=== PATIENT | female | born 1965 | race Caucasian/White ===

== ENCOUNTER 2021-02-19 23:05 | Emergency (ER) | payer BC ==
[~2021-02-19] VITALS: Ht 162.6 cm; Wt 90.7 kg
[~2021-02-19 23:05] MED LIST: ALPR1TAB2 PO; ASPI-667 PO; ATOR40TA PO; CIPR500T86 PO; DEXL30CA2 PO; HYDR12.58 PO; LORA0.5T PO; METO25TA4 PO; METR500T PO; PANT40TA3 PO; TRAM50TA PO; VARE1TAB20 PO; VENL37.5 PO; ZOLP10TA PO; ZOLP5TAB PO
[2021-02-19 23:15] VITALS: BP 159/103
[2021-02-19] MEDS ORDERED: TORADOL IM STA (23:17)
[2021-02-19] MEDS ORDERED: TORADOL ONE ×2 (23:23→23:24)
--- NOTE | 2021-02-19 23:26 | ER.PDOC ---
General Chief Complaint: Trauma Stated Complaint: FALL,R SIDE INJURY Time seen by MD: 23:24 Source: patient Exam Limitations: no limitations History of Present Illness Initial Comments Right ribs, hip, knee and ankle pain status post fall. Patient fell off a 5 feet ladder. She did not hit her head and no loss of consciousness. It happened prior to arrival. Occurred: just prior to arrival Where: home Severity: moderate Injuries/Pain Location: chest, lower extremity Context: Lost Balance Loss of Consciousness: No Loss of Consciousness Associated Symptoms: denies symptoms Allergies: Coded Allergies: erythromycin base (Verified Allergy, Mild, 10/18/14) meperidine (Verified Allergy, Mild, 10/18/14) morphine (Verified Allergy, Mild, 10/18/14) Iodine and Iodide Containing Produc (Verified Allergy, Unknown, 10/18/14) MEDS Active Scripts Pantoprazole Sodium (PROTONIX) 40 Mg Tablet.dr, 40 MG PO DAILY24, #30 TAB 1 Refill Prov:BETI BOYD MD 03/24/20 Reported Medications Alprazolam (XANAX) 1 Mg Tablet, 1 TAB PO QID PRN for ANXIETY, #60 TAB 03/23/20 Zolpidem Tartrate (AMBIEN) 5 Mg Tablet, 1 TAB PO HS, #30 TAB 2 Refills 03/23/16 Atorvastatin 40MG (LIPITOR 40MG) 40 Mg Tablet, 1 TAB PO HS, #90 TAB 1 Refill 10/18/14 Aspirin (ASPIRIN) 81 Mg Tab.chew, 1 TAB PO DAILY, #30 TAB 3 Refills 10/18/14 Past Medical History Medical History: high cholesterol, hypertension Surgical History: cholecystectomy, knee Family History Significant Family History: no pertinent family hx Social History Alcohol Use: none Drug Use: none Review of Systems Constitutional: no symptoms reported Respiratory: no symptoms reported Cardiovascular: see HPI Gastrointestinal: no symptoms reported Genitourinary: no symptoms reported Musculoskeletal: see HPI All Other Systems: Reviewed and Negative Physical Exam General Appearance: No Apparent Distress, WD/WN Head: No Evidence of Injury Ears, Nose, Mouth, Throat: Hearing Grossly Normal, No Evidence of ENT Injury, No Dental Injury Neck: Non-Tender, Normal Alignment, Nexus criteria neg, Normal Inspection Cardiovascular/Respiratory: Regular Rate, Rhythm, No M/R/G, Normal Peripheral Pulses, No JVD, Rib Tenderness (right) Back: Normal Inspection, No CVA Tenderness, No Vertebral Tenderness Extremities: Pain With Movement (right hip), Tenderness (right knee and ankle) Neurologic/Psychiatric: can slider II-XII NML as Tested, No Motor/Sensory Deficits, Alert, Normal Mood/Affect, Oriented x 3 Skin: Normal Color, Warm/Dry [place] Coma Score Best Eye Response: (4) Open Spontaneously Best Verbal Response: (5) Oriented Best Motor Response: (6) Obeys Commands Results/Orders Results/Orders Orders - BREEZY COURTNEY MD Xr Ribs Rt W/Cxr (02/19/21 23:17) Xr Hip Rt 2v W/Pelvis (02/19/21 23:17) Xr Knee Rt 2v (02/19/21 23:17) Xr Ankle 3v Rt (02/19/21 23:17) Ketorolac Tromethamine (Toradol) (02/19/21 23:17) Ketorolac Tromethamine (Toradol) (02/19/21 23:23) Ketorolac Tromethamine (Toradol) (02/19/21 23:24) Xr Hand Rt (02/19/21 23:59) Vital Signs Date Time Temp Pulse Resp B/P (MAP) Pulse Ox O2 Delivery O2 Flow Rate FiO2 02/19/21 23:15 98.0 90 16 02/19/21 23:15 98.0 90 16 93 02/19/21 23:15 98.0 90 16 159/103 (121) 93 Room Air Administered Medications Medications (Trade) Dose Ordered Sig/Praneeth Route PRN Reason Start Time Stop Time Status Last Admin Dose Admin Ketorolac Tromethamine (Toradol) 60 mg STAT STAT IM 02/19/21 23:17 02/19/21 23:20 DC 02/19/21 23:31 60 MG Progress Progress X-rays of right ribs, hand, hip, knee and ankle are all negative. ER DEPART Departure Time of Disposition: 00:37 Disposition: 01 HOME, SELF-CARE Impression: Primary Impression: Multiple contusions Additional Impression: Fall Condition: Stable Referrals: BETI BOYD MD (PCP) PRIMARY CARE PROVIDER Additional Instructions: Tramadol Ibuprofen F/U with your PCP next week Duration or Time Spent with Pa: 45 min Problem Qualifiers Additional Impression: Fall Encounter type: initial encounter Qualified Codes: W19.XXXA - Unspecified fall, initial encounter ROZ,BREEZY Sánchez MD Feb 19, 2021 23:26
--- NOTE | 2021-02-19 23:30 | NUR ---
ARRIVAL PT ARRIVED POV, ASSISTED OUT OF POV INTO WC ESCORTED TO ER 4 S/P FALLING FOOT OFF LADDER LANDING ON RIGHT SIDE WHILE PULLING SHINGLES AT 8 PM. PT REPORTS RIGHT RIB PAIN, RIGHT HIP, LEG AND ANKLE PAIN. NO BRUISING, NO REDNESS, NO EDEMA NOTED TO AREAS OF PAIN. PT ACCOMPANIED BY . PT DENIES LOC, PT ABLE TO BEAR WEIGHT ON RIGH LEG AND MOVE ALL DIGITS ON RIGHT HAND. PT PLACED ON MONITOR, VITALS WNL. ERP AT BEDSIDE.
--- NOTE | 2021-02-20 00:10 | NUR ---
RAD PENDING RADIOLOGY REPORTS. PT LYING ON LEFT SIDE, AT BEDSIDE. PT REPORTS RELIEF FROM PAIN MEDICATION. WARM BLANKET GIVEN FOR COMFORT.
--- NOTE | 2021-02-20 00:27 | DIREP ---
PROCEDURE:XRAY RIBS W/PA CHEST 3VWS-RT COMPARISON:None. INDICATIONS:pain S/P fall FINDINGS: Chest:No active pulmonary disease. No pneumothorax. RIBS:No fracture. OTHER:Surgical clips in right upper quadrant abdomen compatible cholecystectomy all. CONCLUSION:No active pulmonary disease. No pneumothorax. No evidence of acute displaced rib fracture. Dictated by: Hayden Salomon MD on 02/20/2021 at 00:24 AM
--- NOTE | 2021-02-20 00:28 | DIREP ---
PROCEDURE:XRAY HIP MIN 2VW-RT COMPARISON:None. INDICATIONS:pain FINDINGS: BONES:No evidence of acute fracture. Moderate degenerative change of the left SI joints. JOINTS:Normal. SOFT TISSUES:Normal. OTHER:No additional findings. CONCLUSION:No fracture. No dislocation. 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 Dictated by: Hayden Salomon MD on 02/20/2021 at 00:26 AM
--- NOTE | 2021-02-20 00:29 | DIREP ---
PROCEDURE:XRAY KNEE 2 VWS-RT COMPARISON:None. INDICATIONS:pain FINDINGS:AP and lateral view right knee BONES:There is a prosthetic portion involving the patellofemoral joint. JOINTS:Normal. SOFT TISSUES:Normal. OTHER:No additional findings. CONCLUSION:No fracture. No dislocation. Patellofemoral prosthesis. Dictated by: Hayden Salomon MD on 02/20/2021 at 00:27 AM
--- NOTE | 2021-02-20 00:31 | DIREP ---
PROCEDURE:XRAY ANKLE MIN 3VWS-RT COMPARISON:None. INDICATIONS:pain FINDINGS:AP, lateral, and oblique view. BONES:No evidence of acute fracture. JOINTS:Degenerative changes or secondary ossification center seen involving base of the 5th metatarsal. SOFT TISSUES:Normal. OTHER:No additional findings. CONCLUSION:No fracture. No dislocation. Degenerative changes described above. Dictated by: Hayden Salomon MD on 02/20/2021 at 00:27 AM
--- NOTE | 2021-02-20 00:32 | DIREP ---
PROCEDURE:XRAY HAND MIN 3 VW-RT COMPARISON:[facility], , XRAY HAND MIN 3 VW-RT, 05/06/2019, 10:20 AM. INDICATIONS:PAIN AFTER FALL FINDINGS:AP, lateral, and oblique view. BONES:Normal. No fracture. JOINTS:No dislocation. Mild degenerative change of the PIP joint of the involving the 2nd and 3rd digits. SOFT TISSUES:Normal. OTHER:No additional findings. CONCLUSION:No fracture. No dislocation. Mild degenerative changes compatible osteoarthritis. Dictated by: Hayden Salomon MD on 02/20/2021 at 00:29 AM
--- NOTE | 2021-02-20 00:45 | NUR ---
DISCHARGE DC INSTRUCTIONS/PRESCRIPTION GIVEN TO PT. PT VERBALIZED UNDERSTANDING. PT A & O X 3M, RR REGULAR, UNLABORED. VITALS WNL UPON DC. PT ABLE TO MAKE NEEDS KNOWN. PT ABLE TO TRANSFER TO W/OUT ASSIST. PT ESCORTED TO POV VIA [place], PT ABLE TO GET UP IN TRUCK W/OUT ASSIST.
== END 2021-02-20 00:45 | disposition home or self-care (01) ==
LOC: ER 23:05
DX: S80.01XA Contusion of right knee, initial encounter (principal); S90.01XA Contusion of right ankle, initial encounter; S20.211A Contusion of right front wall of thorax, initial encounter; S70.01XA Contusion of right hip, initial encounter; I10 Essential (primary) hypertension; E78.00 Pure hypercholesterolemia, unspecified; Z79.1 Long term (current) use of non-steroidal anti-inflammatories (NSAID); Z79.82 Long term (current) use of aspirin; Z79.899 Other long term (current) drug therapy; Z88.1 Allergy status to other antibiotic agents; Z88.5 Allergy status to narcotic agent; Z88.8 Allergy status to other drugs, medicaments and biological substances; Z90.49 Acquired absence of other specified parts of digestive tract; W11.XXXA Fall on and from ladder, initial encounter; Y93.89 Activity, other specified; Y92.89 Other specified places as the place of occurrence of the external cause; Y99.8 Other external cause status
CPT/HCPCS: 71101; 73130; 73502; 73560; 73610; 96372; 99284; J1885 ×2

== ENCOUNTER 2021-06-19 19:43 | Emergency (ER) | payer BC ==
[~2021-06-19] VITALS: Ht 162.6 cm; Wt 87.1 kg
[2021-06-19 20:00] VITALS: BP 143/91
[2021-06-19] MEDS ORDERED: TORADOL IV ONE (20:30)
[2021-06-19] MEDS ORDERED: TORADOL ONE (20:42)
[2021-06-19 20:45] LABS: BASOPHIL # 0.1 10^3/uL (0.0-0.1); BASOPHIL % 0.5 % (0.0-0.2); EOSINOPHIL # 0.3 10^3/uL (0.0-0.2); EOSINOPHIL % 2.2 % (0.0-5.0); LYMPHOCYTES # 4.44 10^3/uL1 (1.0-4.8); LYMPHOCYTES % 38.2 % (24.0-44.0); MEAN CORP HGB 33.2 pg (26-34); NEUTROPHIL # 5.8 10^3/uL (1.8-7.7); NEUTROPHILS % 49.8 % (41.0-85.0); PLATELET COUNT 303 10^3/uL (150-400); RED CELL DISTRIBUTION WIDTH 13.2 % (11.5-14.5)
[2021-06-19 20:55] LABS: UA COLOR YELLOW
[2021-06-19 20:56] LABS: BILIRUBIN,URINE NEGATIVE (NEGATIVE); UROBILINOGEN,URINE 0.2 E.U./dL (0.2)
[2021-06-19 21:00] LABS: CALCIUM 8.8 mg/dL (8.4-10.5); CARBON DIOXIDE 25.9 mmol/L (20.0-32)
[2021-06-19 21:08] LABS: EOSINOPHIL 1 % (1-4); LYMPHOCYTE 39 % (25-36); MONOCYTE 13 % (3-9); SEGMENTED NEUTROPHILS 47 % (31-76)
--- NOTE | 2021-06-19 21:43 | DIREP ---
PROCEDURE:CT ABDOMEN/PELVIS W/O CONTRAST COMPARISON:None. INDICATIONS:L abd pain TECHNIQUE:Axial images were created through the abdomen and pelvis without intravenous contrast material. No oral contrast was administered. Sagittal and coronal reconstructions were performed from source images. FINDINGS: LUNG BASES:Normal. No visible pulmonary or pleural disease. LIVER:Normal. No significant liver lesions are identified. BILIARY:The gallbladder is surgically absent. PANCREAS:Normal. No lesion, fluid collection, ductal dilatation, or atrophy. SPLEEN:Normal. No enlargement or focal lesion. ADRENALS:Normal. No mass or enlargement. URINARY TRACT:Punctate left nephrolith no distal stone or hydronephrosis. AORTA/VASCULAR:There are aortic atherosclerotic calcifications present. No aneurysm. RETROPERITONEUM:Normal. No mass or adenopathy. BOWEL/MESENTERY:There is mild colonic diverticulosis without evidence for diverticulitis. There is no intestinal obstruction, free fluid, free air or mesenteric inflammatory changes. ABDOMINAL WALL:Normal. No mass or hernia. PELVIC ORGANS:Normal. No visible mass. Pelvic organs appropriate for patient age. BONES:Mild degenerative changes. No acute bony abnormality. OTHER:Negative. CONCLUSION:1. Punctate left nephrolith without distal stone or hydronephrosis. 2. Mild colonic diverticulosis. Dictated by: Sobia Christianson M.D. on 06/19/2021 at 09:36 PM
[2021-06-19 21:55] VITALS: BP 108/78
[2021-06-19] MEDS ORDERED: BACTRIM DS PO STA (22:08)
--- NOTE | 2021-06-19 22:08 | ER.PDOC ---
General Chief Complaint: Abdomen Pain Stated Complaint: ABDOMINAL PAIN Time seen by MD: 20:05 Source: patient Exam Limitations: no limitations History of Present Illness Initial Comments Patient presents with complaint of suprapubic pain for since 2 AM. She denies any back pain fevers chills or urinary symptoms. She states she has a history of diverticulitis but this does not feel like that. She describes the pain as sharp and she states she has had chills. Patient does smoke she has a history of coronary artery disease. Past surgeries are right oophorectomy and right appendicitis. Allergies: Coded Allergies: erythromycin base (Verified Allergy, Mild, 10/18/14) meperidine (Verified Allergy, Mild, 10/18/14) morphine (Verified Allergy, Mild, 10/18/14) Iodine and Iodide Containing Produc (Verified Allergy, Unknown, 10/18/14) Home Meds Active Scripts Pantoprazole Sodium (PROTONIX) 40 Mg Tablet.dr, 40 MG PO DAILY24, #30 TAB 1 Refill Prov:BETI BOYD MD 03/24/20 Reported Medications Alprazolam (XANAX) 1 Mg Tablet, 1 TAB PO QID PRN for ANXIETY, #60 TAB 03/23/20 Zolpidem Tartrate (AMBIEN) 5 Mg Tablet, 1 TAB PO HS, #30 TAB 2 Refills 03/23/16 Atorvastatin 40MG (LIPITOR 40MG) 40 Mg Tablet, 1 TAB PO HS, #90 TAB 1 Refill 10/18/14 Aspirin (ASPIRIN) 81 Mg Tab.chew, 1 TAB PO DAILY, #30 TAB 3 Refills 10/18/14 Vital Signs First Vital Signs Date Time Temp Pulse Resp B/P (MAP) Pulse Ox O2 Delivery O2 Flow Rate FiO2 06/19/21 20:00 98.0 98 20 143/91 (108) 94 Room Air Last Vital Signs Date Time Temp Pulse Resp B/P (MAP) Pulse Ox O2 Delivery O2 Flow Rate FiO2 06/19/21 21:55 98.3 80 19 108/78 (88) 96 Room Air Past Medical History Medical History: no pertinent history Surgical History: cholecystectomy, knee Social History Alcohol Use: none Drug Use: none Constitutional: no symptoms reported Respiratory: no symptoms reported Cardiovascular: no symptoms reported Gastrointestinal: abdominal pain Genitourinary: no symptoms reported Musculoskeletal: no symptoms reported Skin: no symptoms reported Physical Exam General Appearance: No Apparent Distress, WD/WN HEENT: PERRL/EOMI, Normal ENT Inspection Neck: Non-Tender, Full Range of Motion, Supple Respiratory: normal breath sounds Cardiovascular: Normal Peripheral Pulses, Regular Rate, Rhythm, No Edema Gastrointestinal: Soft, Tenderness (Left-sided abdominal tenderness and suprapubic tenderness to palpation. Mild guarding Mainly in left lower quadrantno rebound noted) Back: Normal Inspection, No CVA Tenderness, No Vertebral Tenderness Extremities: Normal Range of Motion, Non-Tender, Normal Inspection Neurologic/Psychiatric: pharmacy sales representative II-XII NML as Tested, No Motor/Sensory Deficits, Alert, Normal Mood/Affect, Oriented x 3 Skin: Normal Color, Warm/Dry Results/Orders Results/Orders Orders - JENN HURTADO MD Cbc With Auto Diff (06/19/21 20:15) Comprehensive Metabolic Panel (06/19/21 20:15) Lipase (06/19/21 20:15) Urinalysis (06/19/21 20:15) Saline Lock (06/19/21 20:15) Ketorolac Tromethamine (Toradol) (06/19/21 20:30) Ketorolac Tromethamine (Toradol) (06/19/21 20:42) Urine Culture (06/19/21 20:20) Ct Abd/Pelvis Wo Iv Contrast (06/19/21 21:05) Vital Signs Date Time Temp Pulse Resp B/P (MAP) Pulse Ox O2 Delivery O2 Flow Rate FiO2 06/19/21 21:55 98.3 80 19 108/78 (88) 96 Room Air 06/19/21 20:00 98.0 98 19 06/19/21 20:00 98.0 98 19 94 06/19/21 20:00 98.0 98 20 143/91 (108) 94 Room Air Administered Medications Medications (Trade) Dose Ordered Sig/Praneeth Route PRN Reason Start Time Stop Time Status Last Admin Dose Admin Ketorolac Tromethamine (Toradol) 15 mg OT ONCE IV 06/19/21 20:30 06/19/21 20:31 DC 06/19/21 20:38 15 MG Laboratory Tests Test 06/19/21 20:20 06/19/21 20:36 06/19/21 20:50 Urine Collection Type RANDOM Urine Color YELLOW Urine Appearance CLOUDY Urine Bilirubin NEGATIVE (NEGATIVE) Urine Ketones NEGATIVE (NEGATIVE) Urine Specific [place] 1.025 (1.005-1.030) Urine pH 5.5 (4.5-8.0) Urine Protein NEGATIVE (NEGATIVE) Urine Urobilinogen 0.2 E.U./dL (0.2) Urine Nitrate POSITIVE (NEGATIVE) H Urine Leukocyte Esterase TRACE (NEGATIVE) H Urine Glucose (Auto)(UA) NEGATIVE (NEGATIVE) Urine Blood TRACE-INTACT (NEGATIVE) H Urine RBC 0-2 RBC/HPF (NONE SEEN) Urine WBC 10-25 WBC/HPF (0-2) H Urine Squamous Epithelial Cells FEW #/HPF (FEW) Urine Bacteria MANY (NONE SEEN) H White Blood Count 11.6 10^3/uL (4.5-11.0) H Red Blood Count 4.58 10^6/uL (4.00-5.20) Hemoglobin 15.2 g/dL (12.0-15.0) H Hematocrit 45.3 % (36.0-46.0) Mean Corpuscular Volume 98.9 fL (78-100) Mean Corpuscular Hemoglobin 33.2 pg (26-34) Mean Corpuscular Hemoglobin Concent 33.6 g/dL (33-36.5) Red Cell Distribution Width 13.2 % (11.5-14.5) Platelet Count 303 10^3/uL (150-400) Mean Platelet Volume 9.1 fL (7.8-11.0) Neutrophils (%) (Auto) 49.8 % (41.0-85.0) Lymphocytes (%) (Auto) 38.2 % (24.0-44.0) Monocytes (%) (Auto) 9.0 % (5.0-12.0) Neutrophils # (Auto) 5.8 10^3/uL (1.8-7.7) Lymphocytes # (Auto) 4.44 10^3/uL1 (1.0-4.8) Monocytes # (Auto) 1.0 10^3/uL (0.3-0.8) H Absolute Immature Granulocyte (auto 0.03 10^3 u/L (0-2) Absolute Eosinophils (auto) 0.3 10^3/uL (0.0-0.2) H Immature Granulocytes % 0.30 % (0.00-0.50) Eosinophils % 2.2 % (0.0-5.0) Basophils % 0.5 % (0.0-0.2) H Basophils # 0.1 10^3/uL (0.0-0.1) Sodium Level 140 mmol/L (132-145) Potassium Level 3.8 mmol/L (3.6-5.2) Chloride Level 106.0 mmol/L (96-109) Carbon Dioxide Level 25.9 mmol/L (20.0-32) Anion Gap 11.9 Blood Urea Nitrogen 13 mg/dL (7-18) Creatinine 0.96 mg/dL (0.59-1.40) Estimated GFR () 73.3 (>/=60) Est GFR (CKD-EPI)(Non-Afr Albanian) 60.6 (>/=60) BUN/Creatinine Ratio 13.0 Glucose Level 102 mg/dL (70-110) Calcium Level 8.8 mg/dL (8.4-10.5) Total Bilirubin 0.3 mg/dL (0.2-1.0) Aspartate Amino Transferase (AST) 18 U/L (0-35) Alanine Aminotransferase (ALT) 31 U/L (12-78) Alkaline Phosphatase 66 U/L (50-136) Total Protein 7.0 g/dL (6.4-8.2) Albumin 3.6 g/dL (3.4-5.0) Globulin 3.4 Albumin/Globulin Ratio 1.058 Lipase 82 U/L (114-286) L Segmented Neutrophils 47 % (31-76) Lymphocytes 39 % (25-36) H Monocytes 13 % (3-9) H Absolute Eosinophils (Manual) 1 % (1-4) Platelet Estimate ADEQUATE Platelet Morphology NORMAL Progress Progress Patient CT scan does not show acute disease. There is no evidence of diverticulitis. Her urinalysis is positive for urinary tract infection. This is most likely the cause of her symptoms. Urine culture is pending in the meantime she will be started on Bactrim p.o. ER DEPART Departure Time of Disposition: 22:07 Disposition: 01 HOME / SELF CARE / HOMELESS Impression: Primary Impression: UTI (urinary tract infection) Condition: Stable Referrals: BETI BOYD MD (PCP) PRIMARY CARE PROVIDER Duration or Time Spent with Pa: 9 Return to Work/School Can a patient return to work?: Yes JENN HURTADO MD Jun 19, 2021 22:07
[2021-06-19] MEDS ORDERED: NORCO 5MG PO STA (22:10)
[2021-06-19] MEDS ORDERED: BACTRIM DS ONE (22:13)
[2021-06-19] MEDS ORDERED: NORCO 5MG PO ONE (22:14)
[2021-06-19 22:35] VITALS: BP 110/68
== END 2021-06-19 22:31 | disposition home or self-care (01) ==
LOC: ER 19:43
DX: N39.0 Urinary tract infection, site not specified (principal); I25.10 Atherosclerotic heart disease of native coronary artery without angina pectoris; Z79.1 Long term (current) use of non-steroidal anti-inflammatories (NSAID); Z79.82 Long term (current) use of aspirin; Z79.899 Other long term (current) drug therapy; Z88.1 Allergy status to other antibiotic agents; Z88.5 Allergy status to narcotic agent; Z88.8 Allergy status to other drugs, medicaments and biological substances; Z90.49 Acquired absence of other specified parts of digestive tract
CPT/HCPCS: 36415; 74176; 80053; 81001; 83690; 85025; 87086; 87186; 96374; 99284; J1885

== ENCOUNTER → 2022-03-28 | Outpatient (CLI) | payer BC ==
--- NOTE | 2022-03-28 12:45 | DIREP ---
PROCEDURE:XRAY ELBOW 2VWS-RT COMPARISON:None. INDICATIONS:RIGHT ELBOW PAIN/JOINT EFFUSION FINDINGS: BONES:Normal. No visible fracture or bony lesion. JOINTS:No dislocation. Visualization of the anterior fat pad could indicate a small joint effusion. SOFT TISSUES:Mild soft tissue swelling along the dorsal elbow. No radiopaque foreign body. OTHER:Normal. CONCLUSION:Soft tissue swelling of the dorsal elbow and possible small joint effusion for which a radiographically occult radial head fracture is not excluded. Recommend follow-up radiographs in 7-10 days if there is high clinical concern for an acute fracture. Dictated by: Palmer Mendez M.D. on 03/28/2022 at 12:37 PM
== END | disposition home or self-care (01) ==
LOC: RAD 10:21
PROVIDERS: ATTEND Nurse Practitioner Family
DX: M25.521 Pain in right elbow (principal); M25.421 Effusion, right elbow
CPT/HCPCS: 73070-RT

== ENCOUNTER → 2022-04-18 | Outpatient (CLI) | payer BC ==
--- NOTE | 2022-04-18 14:57 | DIREP ---
PROCEDURE:CT ABDOMEN/PELVIS W + W/O CONTRAST COMPARISON:[facility], CT, CT ABD/PELVIS W/O, 06/19/2021, 09:19 PM. INDICATIONS:DIVERTICULOSIS TECHNIQUE:Axial images were created through the abdomen and pelvis with and without intravenous contrast material. No oral contrast was administered. Sagittal and coronal reconstructions were performed from source images. FINDINGS: LUNG BASES:Normal. No visible pulmonary or pleural disease. LIVER:Normal. No significant liver lesions are identified. BILIARY:The gallbladder is surgically absent. There is no biliary ductal dilatation. PANCREAS:Normal. No lesion, fluid collection, ductal dilatation, or atrophy. SPLEEN:Normal. No enlargement or focal lesion. ADRENALS:Normal. No mass or enlargement. URINARY TRACT:Scarring upper pole right kidney. No focal lesions or hydronephrosis. No renal calculi. AORTA/VASCULAR:Normal. No aneurysm. RETROPERITONEUM:Normal. No mass or adenopathy. BOWEL/MESENTERY:Flru-qx-rhegrwwp long segment thickening throughout the sigmoid colon with several sigmoid diverticula with no pericolonic inflammatory changes. Findings are suspicious for colitis. No definite diverticulitis. There is no intestinal obstruction, free fluid, free air, or mesenteric inflammatory change. Appendix is not identified. No pericecal inflammatory changes ABDOMINAL WALL:Normal. No mass or hernia. PELVIC ORGANS:The uterus is surgically absent. No visible mass. BONES:Normal for age. No bony lesion or acute fracture. OTHER:Negative. CONCLUSION: 1. Napj-ca-gbajsejn long segment thickening throughout the sigmoid colon suspicious for colitis. Multiple sigmoid diverticular are identified but no localized pericolonic inflammatory changes are seen. 2. Prior cholecystectomy and hysterectomy. Dictated by: Cuong Sol MD on 04/18/2022 at 02:41 PM
== END | disposition home or self-care (01) ==
LOC: RAD 10:37
PROVIDERS: ATTEND Specialist
DX: K57.90 Diverticulosis of intestine, part unspecified, without perforation or abscess without bleeding (principal)
CPT/HCPCS: 74178; Q9965